=== PATIENT | male | born 1950 | race Caucasian/White ===

== ENCOUNTER 2017-01-27 05:52 | Observation (INO) ==
--- OUTSIDE RECORDS SUMMARY | 2017-01-27 06:15 | External Medical Summary | Referral Summary ---
:1950 Author Organization [facility] Address [address] [place] [address] Care Team Providers Name Role Phone Bryson Humphreys Primary Care Physician Encounter [facility] Date(s): 11/02/15 - 11/02/[address] [facility] [address] [place] [address]- [place] Discharge Disposition: 01-Home or Self Care Attending Physician: Deep Moreland MD Admitting Physician: Deep Moreland MD Vital Signs Most recent to oldest [Reference Range]: 1 Temperature Oral [35.8-37.3 degC] 36.9 degC (11/02/15 1:26 PM) Peripheral Pulse Rate [60-100 bpm] 90 bpm (11/02/15 1:26 PM) Respiratory Rate [14-20 br/min] 18 br/min (11/02/15 1:26 PM) Blood Pressure [90-140/60-90 mmHg] 138/68 mmHg (11/02/15 1:26 PM) SpO2 96 % (11/02/15 1:26 PM) Problem List Condition Effective Dates Status Health Status Informant Acute UTI(Confirmed) Active Benign essential Active hypertension(Confirmed) CTS (carpal tunnel Active syndrome)(Confirmed) Hypoxia, sleep related(Confirmed) Active Bronchitis, chronic(Confirmed) Active CAD (coronary artery Active disease)(Confirmed) Hx of CABG(Confirmed) Active Hyperlipidemia(Confirmed) Active COPD, mild(Confirmed) Active Snoring(Confirmed) Active Allergies, Adverse Reactions, Alerts Substance Reaction Severity Status penicillin Active sulfanilamide topical Active Medications acetaminophen 500 mg, Oral, q6hr, Tylenol Extra Strength 500 mg tablet take 2 tablet (1000MG ) by oral route every6 hours as needed. Start Date: 01/13/15 Status: Orderedalbuterol 2.5 mg/3 mL (0.083%) inhalation solution 2.5 mg 3 mL, Inhalation, q6hr (scheduled), as needed for wheezing, # 360 mL, 6 Refill(s), Pharmacy: [id number], 3 mL Inhalation q6hr (scheduled ),PRN:as needed for wheezing Start Date: 09/20/15 Status: OrderedAnoro Ellipta 62.5 mcg-25 mcg/inh inhalation powder 1 puffs, Inhalation, Daily, # 30 Each, 0 Refill(s), samples given to patient (Rx ) Start Date: 08/25/15 Status: Orderedaspirin 81 mg oral tablet, chewable 81 mg 1 tabs, Oral, Daily, chew 1 tablet (81MG) by oral route every day. Start Date: 01/13/15 Status: OrderedCentrum Silver Oral, Daily, Centrum Silver 0.4 mg-300 mcg-250 mcg tablet 1 tab qd. Start Date: 01/13/15 Status: OrderedCo Q-10 400 mg, Oral, Daily, 0 Refill(s) Start Date: 08/25/15 Status: OrderedFish Oil Oral, 0 Refill(s) Start Date: 05/30/14 Status: Orderedfurosemide 80 mg oral tablet 1 tabs, Oral, Daily, # 30 tabs, 0 Refill(s) Start Date: 05/30/14 Status: OrderedIncruse Ellipta 62.5 mcg/inh inhalation powder 1 Each, Inhalation, q24hr, doses should be taken at least 24 hours apart, # 30 Each, 0 Refill(s), Pharmacy: [facility] [id number], 1 Each Inhalation q24hr ,Instr:doses should be taken at least 24 hours apart Start Date: 10/11/15 Status: Orderedlabetalol 200 mg oral tablet 1 tabs, Oral, BID, # 60 tabs, 0 Refill(s) Start Date: 05/30/14 Status: Orderedlisinopril 20 mg oral tablet 20 mg 1 tabs, Oral, Daily, take 1 tablet (20MG) by oral route every day. Start Date: 01/13/15 Status: Orderedminoxidil 10 mg oral tablet 1 tabs, Oral, BID, # 60 tabs, 0 Refill(s) Start Date: 05/30/14 Status: OrderedMucinex mg, Oral, q12hr, 0 Refill(s) Start Date: 05/30/14 Status: OrderedMylanta Ultimate Strength 500 mg-500 mg/5 mL oral suspension Oral, Daily, 2 tbsp qd. Start Date: 01/13/15 Status: OrderedPravachol 40 mg oral tablet mg tabs, Oral, Bedtime (once a day), 0 Refill(s) Start Date: 08/25/15 Status: Orderedspironolactone 25 mg oral tablet 1 tabs, Oral, BID, # 60 tabs, 0 Refill(s) Start Date: 05/30/14 Status: Ordered Results No data available for this section Immunizations No data available for this section Procedures Procedure Date Related Diagnosis Body Site Coronary artery bypass grafting procedure 1999 Coronary artery stenting Tonsillectomy and adenoidectomy Social History Social History Type Response Smoking Status Never smoker Assessment and Plan No data available for this section
--- OUTSIDE RECORDS SUMMARY | 2017-01-27 06:15 | External Medical Summary | Referral Summary ---
:1950 Author Organization [facility] [place] Address [address] [place] [address] Care Team Providers Name Role Phone Bryson Humphreys Primary Care Physician Encounter [facility] Date(s): 10/28/15 - 10/28/15 [facility] [place] [address] [place] [address]- [phone] Discharge Disposition: 01-Home or Self Care Attending Physician: Ritesh Wall MD Referring Physician: Deep Moreland MD Vital Signs Most recent to oldest [Reference Range]: 1 Peripheral Pulse Rate [60-100 bpm] 84 bpm (10/28/15 3:06 PM) Blood Pressure [90-140/60-90 mmHg] 144/74 mmHg *HI* (10/28/15 3:06 PM) SpO2 95 % (10/28/15 3:06 PM) Problem List Condition Effective Dates Status Health Status Informant Acute UTI(Confirmed) Active Benign essential Active hypertension(Confirmed) CTS (carpal tunnel Active syndrome)(Confirmed) Bronchitis, chronic(Confirmed) Active CAD (coronary artery Active [...] wheezing, # 360 mL, 6 Refill(s), Pharmacy: [id number], 3 mL Inhalation q6hr (scheduled ),PRN:as needed [...] apart, # 30 Each, 0 Refill(s), Pharmacy: [facility] [id number], 1 Each Inhalation q24hr ,Instr:doses should be [...] bypass grafting procedure 1999 Coronary artery stenting Social History Social History Type Response Smoking Status Never smoker Assessment and Plan No data available for this section
--- OUTSIDE RECORDS SUMMARY | 2017-01-27 06:16 | External Medical Summary | Referral Summary ---
:1950 Author Organization [facility] [place] Address [address] [place] [address] Care Team Providers Name Role Phone Bryson Humphreys Primary Care Physician Encounter [facility] [id number] Date(s): 01/11/16 - 01/11/16 [facility] [place] [address] [place] [address]- [phone] Discharge Disposition: 01-Home or Self Care Attending Physician: Ritesh Wall MD Admitting Physician: Ritesh Wall MD Vital Signs No data available for this section Problem List Condition Effective Dates Status Health [...] wheezing, # 360 mL, 6 Refill(s), Pharmacy: [facility], 3 mL Inhalation q6hr (scheduled ),PRN:as needed [...] apart, # 30 Each, 0 Refill(s), Pharmacy: [facility] [address]248, 1 Each Inhalation q24hr ,Instr:doses should be [...]
--- OUTSIDE RECORDS SUMMARY | 2017-01-27 06:16 | External Medical Summary | Referral Summary ---
:1950 Author Organization [facility] Address [address] [place] [address] Care Team Providers Name Role Phone Bryson Humphreys Primary Care Physician Encounter [facility] [id number] Date(s): 08/25/15 - 08/25/15 [facility] [address] [place] [address]- [place] Discharge Diagnosis: Shortness of breath Discharge Disposition: 01-Home or Self Care Attending Physician: Deep Moreland MD Admitting Physician: Deep Moreland MD Vital Signs No data available for [...] Orderedalbuterol 2.5 mg/3 mL (0.083%) inhalation solution 6 mL, Inhalation, q6hr (scheduled), as needed for wheezing, # 300 mL, 0 Refill(s ), Pharmacy: [facility] [id number], 6 mL Inhalation q6hr (scheduled),x30 days,PRN:as needed for wheezing Start Date: 05/30/14 Stop Date: 06/29/14 Status: OrderedAnoro Ellipta 62.5 mcg-25 mcg/inh inhalation [...] tabs, 0 Refill(s) Start Date: 05/30/14 Status: Orderedlabetalol 200 mg oral tablet 1 [...]
--- OUTSIDE RECORDS SUMMARY | 2017-01-27 06:16 | External Medical Summary | Continuity of Care Document ---
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 11/01/2015 Xavi Garrett, Final I10 Essential (primary) Ritesh A hypertension 11/01/2015 Xavi Garrett, Final R06.83 Snoring Ritesh A 11/10/2015 Oyieng''o, Final E66.01 Morbid (severe) Deep O obesity due to excess calories 11/10/2015 Oyieng''o, Final G47.34 Idiopathic sleep Deep O related nonobstructive alveolar hypoventilation 11/10/2015 Oyieng''o, Final R06.02 Shortness of breath Deep O 01/11/2016 Xavicarola Maloneyes, Final G47.33 Obstructive sleep Ritesh A apnea (adult) (pediatric) 01/11/2016 Xavicarola Maloneyes, 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 01/11/2016 Xavi Garrett, 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 01/23/2016 Xavi Garrett, Final G47.33 Obstructive sleep Ritesh A apnea (adult) (pediatric) 01/23/2016 Xavi Garrett, 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 07/10/2016 Oyieng''o, Final E66.01 Morbid (severe) Deep O obesity due to excess calories 07/10/2016 Oyieng''o, Final G47.34 Idiopathic sleep Deep O related nonobstructive alveolar hypoventilation 07/10/2016 Oyieng''o, Final R06.02 Shortness of breath Deep O 07/10/2016 Oyieng''o, Final R53.81 Other malaise Deep O Procedures Code Description Performed By Performed On 11/02/2015 06826 Office or other outpatient visit for the evaluation and management of an established patient, which requires at least 2 of these 3 marie components: An expanded problem focused history; An expanded prob 01/11/2016 69525 Polysomnography; age 6 years or older, sleep staging with 4 or more additional parameters of sleep, attended by a technologist 01/21/2016 76551 Office or other outpatient visit for the evaluation and management of an established patient, which requires at least 2 of these 3 marie components: An expanded problem focused history; An expanded prob 07/10/2016 95488 Office or other outpatient visit for the evaluation and management of an established patient, which requires at least 2 of these 3 marie components: An expanded problem focused history; An expanded prob Results Encounters ACCT No. Visit Discharge Status Pt. Type Provider Facility Loc./Unit Complaint Date/Time [id number] 05/31/2015 05/31/2015 [facility] Outpatient [id number] 09:31:39 09:31:39 39 [id number] 05/31/2015 05/31/2015 [facility] Outpatient [id number] 09:31:31 09:31:33 31 [id number] 04/02/2015 04/02/2015 [facility] Outpatient [id number] 13:20:42 23:59:59 42 [id number] 04/02/2015 04/02/2015 [facility] Outpatient [id number] 10:53:41 23:59:59 41 [id number] 04/02/2015 04/02/2015 [facility] Outpatient [id number] 09:51:56 23:59:59 56 [id number] 04/02/2015 04/02/2015 [facility] Outpatient [id number] 09:51:53 23:59:59 53 [id number] 04/02/2015 04/02/2015 [facility] Outpatient [id number] 09:51:52 23:59:59 52 [id number] 04/02/2015 04/02/2015 [facility] Outpatient [id number] 09:49:44 23:59:59 44 [id number] 04/02/2015 04/02/2015 [facility] Out[facility] [id number] 09:49:42 23:59:59 42 [id number] 04/02/2015 04/02/2015 [facility] Outpatient [id number] 11:14:12 11:14:12 12 [id number] 04/02/2015 04/02/2015 [facility] Outpatient [id number] 10:53:24 10:53:25 24 [id number] 04/02/2015 04/02/2015 [facility] Outpatient [id number] 09:56:12 09:56:12 12 [id number] 04/02/2015 04/02/2015 [facility] Outpatient [id number] 09:51:57 09:51:57 57 [id number] 04/02/2015 04/02/2015 [facility] Outpatient [id number] 09:51:55 09:51:55 55 [id number] 04/02/2015 04/02/2015 [facility] Outpatient [id number] 09:51:54 09:51:54 54 [id number] 04/02/2015 04/02/2015 [facility] Outpatient [id number] 09:51:51 09:51:51 51 [id number] 04/02/2015 04/02/2015 [facility] Outpatient [id number] 09:50:37 09:50:37 37 [id number] 03/31/2015 03/31/2015 [facility] Outpatient [id number] 08:49:10 23:59:59 10 [id number] 03/31/2015 03/31/2015 [facility] Outpatient [id number] 08:49:09 08:49:09 09 [id number] 03/30/2015 03/30/2015 [facility] Outpatient [id number] 15:00:39 23:59:59 39 [id number] 03/30/2015 03/30/2015 [facility] Outpatient [id number] 15:00:13 23:59:59 13 [id number] 03/30/2015 03/30/2015 [facility] Outpatient [id number] 15:00:26 15:00:30 26 [id number] 03/30/2015 03/30/2015 [facility] Outpatient [id number] 15:00:01 15:00:04 01 [id number] 03/30/2015 03/30/2015 [facility] Outpatient [id number] 10:18:45 10:18:47 45 [id number] 03/30/2015 03/30/2015 [facility] Outpatient [id number] 10:17:15 10:17:17 15 [id number] 03/30/2015 03/30/2015 [facility] Outpatient [id number] 10:16:37 10:16:38 37 [id number] 04/02/2015 Document [id number] 09:56:00 Registrati on [id number] 01/08/2017 01/08/2017 [facility] Outpatient Oyieng''o [facility] 6 MO RCK 21 13:38:00 23:59:00 , [facility] [id number] 07/10/2016 07/10/2016 [facility] Outpatient Oyieng''o [facility] 6 MO RCK 11 09:33:00 23:59:00 , Deep Jo [facility] [id number] 01/21/2016 01/21/2016 [facility] Outpatient Xavi [facility] 09:02:00 23:59:00 Nelli Garrett CP december 12 Ritesh A [facility] [id number] 01/11/2016 01/11/2016 [facility] Outpatient Xavi [facility] split 75 21:42:00 23:59:00 Nelli Garrett CP [facility] [id number] 11/02/2015 11/02/2015 [facility] Outpatient Oyieng''o [facility] 2 MO 87 13:11:00 23:59:00 , Deep Jo RCK/SOA O Clinic [id number] 10/28/2015 10/28/2015 [facility] Outpatient Xavi [facility] CRYSTAL 14:56:00 23:59:00 Nelli Garrett CP [facility] SHORTNESS OF AIR ABN OXI POSSIBLE LEE [id number] 09/07/2015 09/07/2015 [facility] Outpatient Oyieng''o [facility] DR CRYSTAL 89 13:38:00 23:59:00 , Deep Aiken CP REF O Clinic R06.02 RA [id number] 08/25/2015 08/25/2015 [facility] Outpatient Oyieng''o [facility] PFT/OYIENG 00 13:23:00 23:59:00 , Deep Jo O/J44.9/R0 O Clinic 6.02 [id number] 08/25/2015 08/25/2015 [facility] Outpatient Oyieng''o [facility] NPT/LUINST 05 13:21:00 23:59:00 , Deep Jo RA/SOA/YARD HOSTLER O Clinic D NPV [id number] 08/06/2015 08/06/2015 [facility] Outpatient Luinstra, [facility] NPV 90 08:55:00 23:59:00 Bryson [facility] [id number] 05/24/2015 05/24/2015 [facility] Outpatient Luinstra, [facility] cough 31 11:23:00 23:59:00 Bryson Aiken possible Clinic UTI [id number] 05/30/2014 05/30/2014 [facility] Outpatient Prakash, [facility] breathing 25 09:49:00 23:59:00 Jonn Aiken issues Clinic
--- OUTSIDE RECORDS SUMMARY | 2017-01-27 06:16 | External Medical Summary | Referral Summary ---
:1950 Author Organization [facility] Address [address] [place] [address] Care Team Providers Name Role Phone Bryson Humphreys Primary Care Physician Encounter [facility] [id number] Date(s): 07/10/16 - 07/10/16 [facility] [address] [place] [address]- [place] Discharge Diagnosis: Shortness of breath Discharge Diagnosis: Morbid obesity Discharge Diagnosis: Physical deconditioning Discharge Diagnosis: Nocturnal hypoxemia Discharge Disposition: 01-Home or Self Care Attending Physician: Deep Delong MD Admitting Physician: Deep Delong MD Vital Signs Most recent to oldest [Reference Range]: 1 Peripheral Pulse Rate [60-100 bpm] 90 bpm (07/10/16 9:46 AM) Respiratory Rate [14-20 br/min] 18 br/min (07/10/16 9:46 AM) Blood Pressure [90-140/60-90 mmHg] 110/58 mmHg (07/10/16 9:46 AM) SpO2 95 % (07/10/16 9:46 AM) Problem List Condition Effective Dates Status Health Status Informant Acute UTI(Confirmed) Active Benign essential Active hypertension(Confirmed) CTS (carpal tunnel Active syndrome)(Confirmed) Hypoxia, sleep related(Confirmed) Active Bronchitis, chronic(Confirmed) Active CAD (coronary artery Active disease)(Confirmed) Hx of CABG(Confirmed) Active Hyperlipidemia(Confirmed) Active COPD, mild(Confirmed) Active Morbid obesity(Confirmed) Active patient LEE on CPAP(Confirmed) Active Snoring(Confirmed) Active Allergies, Adverse Reactions, Alerts [...] wheezing, # 360 mL, 6 Refill(s), Pharmacy: [facility], 3 mL Inhalation q6hr (scheduled ),PRN:as needed for wheezing Start Date: 09/20/15 Status: Orderedaspirin 81 mg oral tablet, chewable 81 mg 1 tabs, Oral, Daily, chew 1 tablet (81MG) by oral route every day. Start Date: 01/13/15 Status: Orderedatorvastatin 40 mg oral tablet 40 mg 1 tabs, Oral, Daily, 0 Refill(s) Start Date: 07/10/16 Status: OrderedCentrum Silver Oral, Daily, Centrum Silver 0.4 mg-300 mcg-250 mcg tablet 1 tab qd. Start Date: 01/13/15 Status: OrderedCo Q-10 400 mg, Oral, Daily, 0 Refill(s) Start Date: 08/25/15 Status: OrderedFish Oil Oral, 0 Refill(s) Start Date: 05/30/14 Status: Orderedfurosemide 80 mg oral tablet 1 tabs, Oral, Daily, # 30 tabs, 0 Refill(s) Start Date: 05/30/14 Status: OrderedHome Oxygen (DME) DME Item 2 LPM at bedtime ([facility]), See Instructions, # 1 Each, 0 Refill(s), Supply Start Date: 07/10/16 Status: Orderedlabetalol 200 mg oral tablet 1 [...] 500 mg-500 mg/5 mL oral suspension Oral, As Indicated, 2 tbsp qd. Start Date: 01/13/15 Status: Orderedspironolactone 25 mg oral tablet 1 tabs, Oral, BID, # 60 tabs, 0 Refill(s) Start Date: 05/30/14 Status: Ordered Results No data available for this section Immunizations Given and Recorded Vaccine Date Status Refusal Reason influenza virus vaccine, inactivated 05/04/16 Recorded Procedures Procedure Date Related Diagnosis Body Site Coronary artery bypass grafting procedure 1999 Coronary artery stenting Tonsillectomy and adenoidectomy Social History Social History Type Response Smoking Status Never smoker Assessment and Plan Extracted from: Title: Office Visit Note Author: Deep Delong MD Date: 07/10/16 Assessment/Plan 1. Shortness of breath His shortness of breath is multifactorial, he has cad and HTN and likely has diastolic dysfunction, he is obese and likely deconditioned. Encouraged weight loss and activity. He is working on calorie count and exercise. continue anoro 2. Morbid obesity Encouraged weight loss 3. Deconditioning Encouraged physical activity 4. Nocturnal hypoxemia continue oxygen, undergoing sleep evaluation, pending cpap titration, discussed the benefits of cpap and the indication and differentce between cpap and bipap. I have reviewed the patientsradiology and imaging results I have reviewed old records I have reviewed the literature I have discussed the plan of care with the patient
--- OUTSIDE RECORDS SUMMARY | 2017-01-27 06:16 | External Medical Summary | Referral Summary ---
:1950 Author Organization [facility] Address [address] [place] [address] Care Team Providers Name Role Phone Bryson Humphreys Primary Care Physician Encounter [facility] [id number] Date(s): 08/25/15 - 08/25/15 [facility] [address] [place] [address]- [place] Discharge Diagnosis: Shortness of breath Discharge Disposition: 01-Home or Self Care Attending Physician: Deep Moreland MD Admitting Physician: Deep Moreland MD Vital Signs Most recent to oldest [Reference Range]: 1 Peripheral Pulse Rate [60-100 bpm] 92 bpm (08/25/15 2:35 PM) Respiratory Rate [14-20 br/min] 16 br/min (08/25/15 2:35 PM) Blood Pressure [90-140/60-90 mmHg] 132/74 mmHg (08/25/15 2:35 PM) SpO2 96 % (08/25/15 2:35 PM) Problem List Condition Effective Dates Status [...] # 300 mL, 0 Refill(s ), Pharmacy: [facility] [id number], 6 mL Inhalation q6hr (scheduled),x30 days,PRN:as needed [...] Body Site Coronary artery bypass grafting procedure 2000 Coronary artery stenting Social History Social History Type Response Smoking Status Never smoker Assessment and Plan No data available for this section
--- OUTSIDE RECORDS SUMMARY | 2017-01-27 06:16 | External Medical Summary | Referral Summary ---
:1950 Author Organization [facility] Address [address] [place] [address] M[place] Valentin [address] Care Team Providers Name Role Phone No PCP, States Primary Care Physician Encounter VC Date(s): 05/24/15 - 05/24/15 [facility] [address] [place] [address] [place] Discharge Disposition: 01-Home or Self Care Attending Physician: Bryson Humphreys MD Admitting Physician: Bryson Humphreys MD Vital Signs Most recent to oldest [Reference Range]: 1 Blood Pressure [90-140/60-90 mmHg] 140/70 mmHg (05/24/15 11:34 AM) Problem List Condition Effective Dates Status [...] # 300 mL, 0 Refill(s ), Pharmacy: [id number], 6 mL Inhalation q6hr (scheduled),x30 days,PRN:as needed for wheezing Start Date: 05/30/14 Stop Date: 06/29/14 Status: Orderedaspirin 0 Refill(s) Start Date: 05/30/14 Status: Orderedaspirin 81 mg oral tablet, chewable 81 mg 1 tabs, Oral, Daily, chew 1 tablet (81MG) by oral route every day. Start Date: 01/13/15 Status: OrderedCentrum Daily, 0 Refill(s) Start Date: 05/30/14 Status: OrderedCentrum Silver Oral, Daily, Centrum Silver 0.4 mg-300 mcg-250 mcg tablet 1 tab qd. Start Date: 01/13/15 Status: OrderedCipro 500 mg oral tablet 500 mg 1 tabs, Oral, q12hr, X 10 days, # 20 tabs, 0 Refill(s), Pharmacy: [id number],1 tabs Oral q12hr,x10 days Start Date: 05/24/15 Stop Date: 06/03/15 Status: OrderedFish Oil Oral, 0 Refill(s) Start [...] route every day. Start Date: 01/13/15 Status: Orderedlisinopril-hydrochlorothiazide 20 mg-25 mg oral tablet 1 tabs, Oral, Daily, # 30 tabs, 0 Refill(s) Start Date: 05/30/14 Status: Orderedminoxidil 10 mg oral tablet 1 tabs, Oral, BID, # 60 tabs, 0 Refill(s) Start Date: 05/30/14 Status: OrderedMucinex mg, Oral, q12hr, 0 Refill(s) Start Date: 05/30/14 Status: OrderedMylanta Ultimate Strength 500 mg-500 mg/5 mL oral suspension Oral, Daily, 2 tbsp qd. Start Date: 01/13/15 Status: OrderedNorco 7.5 mg-325 mg oral tablet 1 tabs, Oral, q4hr, take 1 tablet by oral route 3very 4 hours as needed for pain., 0 Refill(s) Start Date: 01/13/15 Status: Orderedpravastatin 40 mg oral tablet 1 tabs, Oral, Daily, # 30 tabs, 0 Refill(s) Start Date: 05/30/14 Status: OrderedpredniSONE 20 mg oral tablet 20 mg 1 tabs, Oral, Daily, X 5 days, # 5 tabs, 0 Refill(s), Pharmacy: [facility] [id number], 1 tabs Oral Daily,x5 days Start Date: 05/24/15 Stop Date: 05/29/15 Status: Orderedspironolactone 25 mg oral tablet 1 tabs, Oral, BID, # 60 tabs, 0 Refill(s) Start Date: 05/30/14 Status: OrderedVentolin HFA 90 mcg/inh inhalation aerosol 2 puffs, Inhalation, q4hr, as needed for wheezing, # 8 g, 1 Refill(s), Pharmacy : [facility] [id number], 2 puffs Inhalation q4hr,PRN:as needed for wheezing Start Date: 05/30/14 Status: Ordered Results Urinalysis Most recent to oldest [Reference Range]: 1 UA Color Yellow (05/24/15 12:00 PM) UA Appear Clear (05/24/15 12:00 PM) UA pH [5.0-8.0] 5.0 (05/24/15 12:00 PM) UA Leuk Est [Negative] Negative (05/24/15 12:00 PM) UA Nitrite [Negative] Negative (05/24/15 12:00 PM) UA Protein [Negative] Negative (05/24/15 12:00 PM) UA Glucose [Negative] Negative (05/24/15 12:00 PM) UA Ketones [Negative] Negative (05/24/15 12:00 PM) UA Urobilinogen [<=1.0 mg/dL] 0.2 mg/dL (05/24/15 12:00 PM) UA Bili [Negative] Negative (05/24/15 12:00 PM) UA Blood [Negative] Trace *ABN* (05/24/15 12:00 PM) UA Spec Grav [1.003-1.030] 1.010 (05/24/15 12:00 PM) Type Voided (05/24/15 12:00 PM) Immunizations No data available for this section Procedures Procedure Date Related Diagnosis Body Site Coronary artery bypass grafting procedure 2000 Coronary artery stenting Social History Social History Type Response Smoking Status Never smoker Assessment and Plan Extracted from: Title: Ambulatory Patient Education Author: Bryson Humphreys MD Date: 05/24 Family Medicine Asthma Asthma is a recurring condition in which the airways tighten and narrow. Asthma can make it difficult to breathe. It can cause coughing, wheezing, and shortness of breath. Asthma episodes, also called a sthma attacks, range from minor to life-threatening. Asthma cannot be cured, but medicines and lifestyle changes can help control it. CAUSES Asthma is believed to be caused by inherited (genetic) and environmental factors, but its exact cause is unknown. Asthma may be triggered by allergens, lung infections, or irritants in the air. Asthma t riggers are different for each person. Common triggers include: Animal dander. Dust mites. Cockroaches. Pollen from trees or grass. Mold. Smoke. Air pollutants such as dust, household cash accountant, hair sprays, aerosol sprays, paint fumes, strong chemicals, or strong odors. Cold air, weather changes, and winds (which increase molds and pollens in the air). Strong emotional expressions such as crying or laughing hard. Stress. Certain medicines (such as aspirin) or types of drugs (such as beta- blockers). Sulfites in foods and drinks. Foods and drinks that may contain sulfites include dried fruit, potato chips, and sparkling grape juice. Infections or inflammatory conditions such as the flu, a cold, or an inflammation of the nasal membranes (rhinitis). Gastroesophageal reflux disease (GERD). Exercise or strenuous activity. SYMPTOMS Symptoms may occur immediately after asthma is triggered or many hours later. Symptoms include: Wheezing. Excessive nighttime or cell attendant coughing. Frequent or severe coughing with a common cold. Chest tightness. Shortness of breath. DIAGNOSIS The diagnosis of asthma is made by a review of your medical history and a physical exam. Tests may also be performed. These may include: Lung function studies. These tests show how much air you breathe in and out. Allergy tests. Imaging tests such as X-rays. TREATMENT Asthma cannot be cured, but it can usually be controlled. Treatment involves identifying and avoiding your asthma triggers. It also involves medicines. There are 2 classes of medicine used for asthma treatment: Controller medicines. These prevent asthma symptoms from occurring. They are usually taken every day. Reliever or rescue medicines. These quickly relieve asthma symptoms. They are used as needed and provide short-term relief. Your health care provider will help you create an asthma action plan. An asthma action plan is a written plan for managing and treating your asthma attacks. It includes a list of your asthma triggers an d how they may be avoided. It also includes information on when medicines should be taken and when their dosage should be changed. An action plan may also involve the use of a device called a peak flow meter. A peak flow meter measures how well the lungs are working. It helps you monitor your condition. HOME CARE INSTRUCTIONS Take medicines only as directed by your health care provider. Speak with your health care provider if you have questions about how or when to take the medicines. Use a peak flow meter as directed by your health care provider. Record and keep track of readings. Understand and use the action plan to help minimize or stop an asthma attack without needing to seek medical care. Control your home environment in the following ways to help prevent asthma attacks: Do not smoke. Avoid being exposed to secondhand smoke. Change your heating and air conditioning filter regularly. Limit your use of fireplaces and wood stoves. Get rid of pests (such as roaches and mice) and their droppings. Throw away plants if you see mold on them. Clean your floors and dust regularly. Use unscented cleaning products. Try to have someone else vacuum for you regularly. Stay out of rooms while they are being vacuumed and for a short while afterward. If you vacuum, use a dust mask from a hardware store, a double-la yered or microfilter vacuum cesspool cleaner bag, or a vacuum cesspool cleaner with a HEPA filter. Replace carpet with wood, tile, or vinyl john. Carpet can trap dander and dust. Use allergy-proof pillows, mattress covers, and box spring covers. Wash bed sheets and blankets every week in hot water and dry them in a dryer. Use blankets that are made of polyester or cotton. Clean bathrooms and jorge luis with bleach. If possible, have someone repaint the griffin in these rooms with mold-resistant paint. Keep out of the rooms that are being cleaned and painted. Wash hands frequently. SEEK MEDICAL CARE IF: You have wheezing, shortness of breath, or a cough even if taking medicine to prevent attacks. The colored mucus you cough up (sputum) is thicker than usual. Your sputum changes from clear or white to yellow, green, guzman, or bloody. You have any problems that may be related to the medicines you are taking (such as a rash, itching, swelling, or trouble breathing). You are using a reliever medicine more than 23 times per week. Your peak flow is still at 5079% of your personal best after following your action plan for 1 hour. You have a fever. SEEK IMMEDIATE MEDICAL CARE IF: You seem to be getting worse and are unresponsive to treatment during an asthma attack. You are short of breath even at rest. You get short of breath when doing very little physical activity. You have difficulty eating, drinking, or talking due to asthma symptoms. You develop chest pain. You develop a fast heartbeat. You have a bluish color to your lips or fingernails. You are light-headed, dizzy, or faint. Your peak flow is less than 50% of your personal best. MAKE SURE YOU: Understand these instructions. Will watch your condition. Will get help right away if you are not doing well or get worse. Document Released: 05/21/2006 Document Revised: 10/05/2014 Document Reviewed: 12/18/2013 ExitCare Patient Information 2015 [facility]. This information is not intended to replace advice given to you by your health care provider. Make sure you discuss any questions you have with your health care provider. No follow up information was provided. Extracted from: Title: Office Visit Note Author: Bryson Humphreys MD Date: 05/24/15 Assessment/Plan Acute UTI UA pending. Cipro 500mg po bid for ten days. The patient has family members present who are agreeable with today's plan and have no additional concerns or requests. here. Ordered: Urinalysis with Culture if Indicated Adult-onset obesity Diet and exercise as tolerated and feasible. Consider medication when interested. Benign essential hypertension This issue was reviewed, appears stable, and current therapy continued except as mentioned. Appropriate lab was reviewed from the most recent appropriate entry and lab was ordered if needed in the cpoe/nursing orders, and follow up recommended generally in 90 days and no later then six months. Sees Dr[address] Chacon. Bronchitis, chronic Prednisone 20mg po daily for five days, has nebulizer and refills. CXR and work up/med adjustment when interested. Needs PCP. CAD (coronary artery disease) This issue was reviewed, appears stable, and current therapy continued except as mentioned. Appropriate lab was reviewed from the most recent appropriate entry and lab was ordered if needed in the cpoe/nursing orders, and follow up recommended generally in 90 days and no later then six months. Sees Dr[address] Chacon. COPD, mild See above. CTS (carpal tunnel syndrome) This issue was reviewed, appears stable, and current therapy continued except as mentioned. Appropriate lab was reviewed from the most recent appropriate entry and lab w as ordered if needed in the cpoe/nursing orders, and follow up recommended generally in 90 days and no later then six months. Sees Dr[address] Harper and had recent surgery on right hand. Hx of CABG This issue was reviewed, appears stable, and current therapy continued except as mentioned. Appropriate lab was reviewed from the most recent appropriate entry and lab was ordered if need ed in the cpoe/nursing orders, and follow up recommended generally in 90 days and no later then six months. Sees [address] Chacon. Hyperlipidemia This issue was reviewed, appears stable, and current therapy continued except as mentioned. Appropriate lab was reviewed from the most recent appropriate entry and lab was ordered if needed in the cpoe/nursing orders, and follow up recommended generally in 90 days and no later then six months. Sees Dr[address] Chacon. Snoring We discussed several options for treatment for this condition. The patient declined any changes or other treatments at this time. To Sleep Medicine for presumed sleep apnea when interested. Orders: ciprofloxacin, 500 mg 1 tabs, Oral, q12hr, X 10 days, # 20 tabs, 0 Refill(s), Pharmacy: [facility] [id number], 1 tabs Oral q12hr,x10 days predniSONE, 20 mg 1 tabs, Oral, Daily, X 5 days, # 5 tabs, 0 Refill(s), Pharmacy: [facility] [id number], 1 tabs Oral Daily,x5 days
--- OUTSIDE RECORDS SUMMARY | 2017-01-27 06:16 | External Medical Summary | Referral Summary ---
:1950 Author Organization [facility] Address [address] [place] [address] [place] [address] Care Team Providers Name Role Phone Bryson Humphreys Primary Care Physician Encounter VC Date(s): 08/06/15 - 08/06/15 [facility] [place] [address] [place] Discharge Disposition: 01-Home or Self Care Attending Physician: Bryson Humphreys MD Admitting Physician: Bryson Humphreys MD Vital Signs Most recent to oldest [Reference Range]: 1 Blood Pressure [90-140/60-90 mmHg] 130/60 mmHg (08/06/15 9:02 AM) Problem List Condition Effective Dates Status [...] # 300 mL, 0 Refill(s ), Pharmacy: [facility] [id number], 6 mL Inhalation q6hr (scheduled),x30 days,PRN:as needed [...] 1 tab qd. Start Date: 01/13/15 Status: OrderedFish Oil Oral, 0 Refill(s) Start Date: 05/30/14 Status: Orderedfurosemide 80 mg oral tablet 1 tabs, Oral, Daily, # 30 tabs, 0 Refill(s) Start Date: 05/30/14 Status: Orderedlabetalol 200 mg oral tablet 1 tabs, Oral, BID, # 60 tabs, 0 Refill(s) Start Date: 05/30/14 Status: Orderedlisinopril 20 mg oral tablet 20 mg 1 tabs, Oral, Daily, # 90 tabs, 0 Refill(s) Start Date: 08/06/15 Status: Orderedlisinopril 20 mg oral tablet 20 [...] 2 tbsp qd. Start Date: 01/13/15 Status: Orderedpravastatin 40 mg oral tablet 1 tabs, Oral, Daily, # 30 tabs, 0 Refill(s) Start Date: 05/30/14 Status: Orderedspironolactone 25 mg oral tablet 1 tabs, Oral, BID, # 60 tabs, 0 Refill(s) Start Date: 05/30/14 Status: Ordered Results Hematology Most recent to oldest [Reference Range]: 1 WBC [4.8-10.8 10*3/uL] 10.4 10*3/uL (08/06/15 9:45 AM) RBC [4.60-6.20] 4.95 (08/06/15 9:45 AM) Hgb [14.0-18.0 gm/dL] 13.6 gm/dL *LOW* (08/06/15 9:45 AM) Hct [42.0-52.0 %] 38.6 % *LOW* (08/06/15 9:45 AM) MCV [82.0-99.0 fL] 78.0 fL *LOW* (08/06/15 9:45 AM) MCH [27.0-32.0 pg] 27.5 pg (08/06/15 9:45 AM) MCHC [32.0-36.0 gm/dL] 35.2 gm/dL (08/06/15 9:45 AM) RDW [11.5-14.5 %] 14.0 % (08/06/15 9:45 AM) Platelet [150-400 10*3/uL] 256 10*3/uL (08/06/15 9:45 AM) MPV [8.8-14.8 fL] 8.8 fL (08/06/15 9:45 AM) Immature Granulocytes [0.0-1.0 %] 0.2 % (08/06/15 9:45 AM) Neutrophils [51-75 %] 78 % *HI* (08/06/15 9:45 AM) Lymphocytes [20-46 %] 13 % *LOW* (08/06/15 9:45 AM) Monocytes [4-11 %] 7 % (08/06/15 9:45 AM) Eosinophils [0-4 %] 1 % (08/06/15 9:45 AM) Basophils [0-2 %] 0 % (08/06/15 9:45 AM) Neutro Absolute [1.90-7.00 10*3] 8.12 10*3 *HI* (08/06/15 9:45 AM) Lymph Absolute [0.80-3.30 10*3] 1.40 10*3 (08/06/15 9:45 AM) Pope Absolute [0.30-1.00 10*3] 0.76 10*3 (08/06/15 9:45 AM) Eos Absolute [0.00-0.50 10*3] 0.12 10*3 (08/06/15 9:45 AM) Baso Absolute [0.00-0.20 10*3] 0.02 10*3 (08/06/15 9:45 AM) Chemistry Most recent to oldest [Reference Range]: 1 Sodium Lvl [135-144 mEq/L] 138 mEq/L (08/06/15 9:45 AM) Potassium Lvl [3.5-5.2 mEq/L] 4.1 mEq/L (08/06/15 9:45 AM) Chloride [99-111 mEq/L] 103 mEq/L (08/06/15 9:45 AM) CO2 [23-31 mEq/L] 25 mEq/L (08/06/15 9:45 AM) AGAP [3-20] 10 (08/06/15 9:45 AM) BUN [8-26 mg/dL] 17 mg/dL (08/06/15 9:45 AM) Glucose Lvl [70-99 mg/dL] 123 mg/dL *HI* (08/06/15 9:45 AM) Creatinine Lvl [0.72-1.25 mg/dL] 0.94 mg/dL (08/06/15 9:45 AM) eGFR [>60 mL/min] >60 mL/min 1 (08/06/15 9:45 AM) Calcium Lvl [8.9-10.5 mg/dL] 9.0 mg/dL (08/06/15 9:45 AM) Albumin Lvl [3.4-4.8 gm/dL] 4.5 gm/dL (08/06/15 9:45 AM) Total Protein [6.2-8.1 gm/dL] 7.0 gm/dL (08/06/15 9:45 AM) Globulin [1.8-4.0 gm/dL] 2.5 gm/dL (08/06/15 9:45 AM) ALT [0-55 U/L] 29 U/L (08/06/15 9:45 AM) AST [5-34 U/L] 20 U/L (08/06/15 9:45 AM) Alk Phos [40-150 U/L] 100 U/L (08/06/15 9:45 AM) Bili Total [0.2-1.2 mg/dL] 0.6 mg/dL (08/06/15 9:45 AM) PSA (wihout Reflex Free) [0.0-4.5 ng/mL] 1.1 ng/mL 2 (08/06/15 9:45 AM) Chol [0-199 mg/dL] 148 mg/dL (08/06/15 9:45 AM) Trig [0-149 mg/dL] 288 mg/dL *HI* (08/06/15 9:45 AM) HDL [40-84 mg/dL] 31 mg/dL *LOW* (08/06/15 9:45 AM) LDL [0-130 mg/dL] 59 mg/dL (08/06/15 9:45 AM) VLDL Cholesterol [0-28 mg/dL] 58 mg/dL *HI* (08/06/15 9:45 AM) Cardiac Risk [0.0-5.7] 4.8 (08/06/15 9:45 AM) TSH with Reflex Free T4 [0.35-4.94] 0.84 (08/06/15 9:45 AM) 1Result Comment: Multiply eGFR results by 1.21 for race.2Result Comment: AUA PSA Best Practice Guidelines: Age-Adjusted PSA Values by Ethnic Group Age Range Asians - Caucasians Americans 40-49 0-2.0 0-2.0 0-2.5 50-59 0-3.0 0-4.0 0-3.5 60-69 0-4.0 0-4.5 0-4.5 70-79 0-5.0 0-5.5 0-6.5Urinalysis Most recent to oldest [Reference Range]: 1 UA Color Yellow (08/06/15 9:45 AM) UA Appear Clear (08/06/15 9:45 AM) UA pH [5.0-8.0] 5.5 (08/06/15 9:45 AM) UA Leuk Est [Negative] Negative (08/06/15 9:45 AM) UA Nitrite [Negative] Negative (08/06/15 9:45 AM) UA Protein [Negative] Negative (08/06/15 9:45 AM) UA Glucose [Negative] Negative (08/06/15 9:45 AM) UA Ketones [Negative] Negative (08/06/15 9:45 AM) UA Urobilinogen [<1.0 mg/dL] 0.2 mg/dL (08/06/15 9:45 AM) UA Bili [Negative] Negative (08/06/15 9:45 AM) UA Blood [Negative] Negative (08/06/15 9:45 AM) UA Spec Grav [1.003-1.030] 1.012 (08/06/15 9:45 AM) Type Voided (08/06/15 9:45 AM) Immunizations No data available for this section Procedures Procedure Date Related Diagnosis Body Site Coronary artery bypass grafting procedure 2000 Coronary artery stenting Social History Social History Type Response Smoking Status Never smoker Assessment and Plan Extracted from: Title: Ambulatory Patient Education Author: Bryson Humphreys MD Date: Family Medicine Asthma Asthma is a recurring [...] Smoke. Air pollutants such as dust, household creative writing teacher, hair sprays, aerosol sprays, paint fumes, strong [...] later. Symptoms include: Wheezing. Excessive nighttime or senior net web developer coughing. Frequent or severe coughing with a [...] dust mask from a hardware store, a double- layered or microfilter vacuum cleaner and trimmer bag, or a vacuum cleaner and trimmer with a HEPA filter. Replace carpet with [...] are not doing well or get worse. This information is not intended to replace advice given to you by your health care provider. Make sure you discuss any questions you have with your health care provider. Document Released: 05/21/2006 Document Revised: 10/05/2014 Document Reviewed: 12/18/2013 ExitCare Patient Information 2015 [employer]. No follow up information was provided. Extracted from: Title: Office Visit Note Author: Bryson Humphreys MD Date: 3/4/16 Assessment/Plan CAD (coronary artery disease) This issue was reviewed, appears stable, and current therapy continued except as mentioned. Appropriate lab was reviewed from the most recent appropriate entry and lab was ordered if needed in the cpoe/nursing orders, and follow up recommended generally in 90 days and no later then six months. Notes from Dr. Chacon from 06/30/15 reviewed with negative stress test. COPD, mild To [facility] Pulmonology for evaluation and consideration of PFTs, and/ or sleep apnea work up also. Continue albuterol. Other inhalers offered and declined. CXR pending. High cholesterol This issue was reviewed, appears stable, and current therapy continued except as mentioned. Appropriate lab was reviewed from the most recent appropriate entry and lab was ordered i f needed in the cpoe/nursing orders, and follow up recommended generally in 90 days and no later then six months. Lab pending. The patient has family members present who are agreeable with today 's plan and have no additional concerns or requests. here. Ordered: Lipid Panel HTN (hypertension) This issue was reviewed, appears stable, and current therapy continued except as mentioned. Appropriate lab was reviewed from the most recent appropriate entry and lab was ordered if needed in the cpoe/nursing orders, and follow up recommended generally in 90 days and no later then six months. The patient had an elevated blood pressure reading and is to monitor their bp and call with a report if consistently > 140/90. Ordered: CBC w/ Differential Comprehensive Metabolic Panel TSH with Reflex Free T4 Urinalysis with Culture if Indicated Screening PSA (prostate specific antigen) Lab pending. Ordered: Prostate Specific Antigen Snoring To Pulmonology. Orders: Internal Referral to Pulmonology
--- OUTSIDE RECORDS SUMMARY | 2017-01-27 06:16 | External Medical Summary | Referral Summary ---
:1950 Author Organization [facility] [place] Address [address] [place] [address] Care Team Providers Name Role Phone Bryson Humphreys Primary Care Physician Encounter [facility] Date(s): 09/07/15 - 09/07/15 [facility] [place] [address] [place] [address]- [phone] Discharge Disposition: 01-Home or Self Care Attending Physician: Deep Moreland MD Admitting Physician: Deep Moreland MD Referring Physician: Deep Moreland MD Vital Signs No [...] # 300 mL, 0 Refill(s ), Pharmacy: [facility] [id number], 6 mL Inhalation q6hr (scheduled),x30 days,PRN:as needed [...]
--- OUTSIDE RECORDS SUMMARY | 2017-01-27 06:16 | External Medical Summary | Referral Summary ---
:1950 Author Organization [facility] [place] Address [address] [place] [address] Care Team Providers Name Role Phone Bryson Humphreys Primary Care Physician Encounter [facility] [id number] Date(s): 01/21/16 - 01/21/16 [facility] [place] [address] [place] [address]- [phone] Discharge Disposition: 01-Home or Self Care Attending Physician: Ritesh Wall MD Admitting Physician: Ritesh Wall MD Vital Signs Most recent to oldest [Reference Range]: 1 Peripheral Pulse Rate [60-100 bpm] 88 bpm (01/21/16 9:12 AM) Blood Pressure [90-140/60-90 mmHg] 136/80 mmHg (01/21/16 9:12 AM) SpO2 96 % (01/21/16 9:12 AM) Problem List Condition Effective Dates Status Health Status Informant Acute UTI(Confirmed) Active Benign essential Active hypertension(Confirmed) CTS (carpal tunnel Active syndrome)(Confirmed) Hypoxia, sleep related(Confirmed) Active Bronchitis, chronic(Confirmed) Active CAD (coronary artery Active disease)(Confirmed) Hx of CABG(Confirmed) Active Hyperlipidemia(Confirmed) Active COPD, mild(Confirmed) Active Morbid obesity(Confirmed) Active patient Snoring(Confirmed) Active Allergies, Adverse Reactions, Alerts Substance [...] wheezing, # 360 mL, 6 Refill(s), Pharmacy: [facility] [id number], 3 mL Inhalation q6hr (scheduled ),PRN:as needed [...] apart, # 30 Each, 0 Refill(s), [facility] [place] [id number], 1 Each Inhalation q24hr ,Instr:doses should be [...]
[2017-01-27] MEDS ORDERED: SALINE FLUSH 10ml SYRINGE IVF PRN (06:36)
--- NOTE | 2017-01-27 07:10 | Emergency Department Report ---
General Adult HPI - General Chief complaint: Dizziness Stated complaint: dizzy,shoulder pain Time Seen by Provider: 01/27/17 06:10 Source: patient Mode of arrival: ambulatory Limitations: no limitations - History of Present Illness HPI narrative: 67-year-old male presents to the emergency department with a chief complaint of an exacerbation of his typical angina. Patient noted onset of symptoms upon awakening at approximately 0445 today. Patient describes a very mild discomfort that is pressure a in the left side of his chest/shoulder. No radiation. Patient also notes feeling slightly " dizzy." Patient has intermittent bouts of this typical dizziness this is not a new finding for him. Patient does not note any exacerbating or remitting factors. No other complaints or associated symptoms. Patient was at home when the symptoms began. Symptoms have been persistent in nature since onset. Patient does have a history of angina and underwent CABG 17 years ago. - Related Data Home Medications Medication Instructions Recorded Confirmed Albuterol Sulfate 1 vial INH BID PRN #0 04/06/15 01/27/17 Aspirin [Aspirin EC] 4 tab PO BID #0 tab 04/06/15 01/27/17 Atorvastatin Calcium 1 tab PO DAILY #0 04/06/15 01/27/17 Fish Oil/Dha/Epa [Fish Oil 1,200 1,200 mg PO DAILY #0 cap 04/06/15 01/27/17 mg Fish Oil] Furosemide 1 tab PO DAILY #0 04/06/15 01/27/17 Guaifenesin/Pseudoephedrne HCl 1 tab PO BID #0 04/06/15 01/27/17 [Mucinex D ER Tablet] Labetalol HCl 1 tab PO BID #0 04/06/15 01/27/17 MYLANTA 1 dose PO PRN PRN #0 04/06/15 01/27/17 Minoxidil 0.5 tab PO BID #0 04/06/15 01/27/17 Multivitamin [Daily Multiple 1 tab PO DAILY #0 04/06/15 01/27/17 Vitamin] Spironolactone 25 mg PO DAILY #0 tab 04/06/15 01/27/17 Ubidecarenone [Coq-10] 400 mg PO DAILY #0 04/06/15 01/27/17 Lisinopril [Prinivil] 20 mg PO DAILY 08/26/17 08/26/17 Allergies Allergy/AdvReac Type Severity Reaction Status Date / Time Penicillins Allergy Unknown 'I ALMOST Unverified 01/27/17 07:16 ' Sulfa (Sulfonamide Allergy Unknown 'I ALMOST Unverified 01/27/17 07:16 Antibiotics) ' Review of Systems Constitutional: Denies: fever, chills Eyes: Denies: eye pain, vision change ENT: Denies: ear pain, throat pain Cardiovascular: Reports: chest pain. Denies: palpitations Respiratory: Denies: cough, dyspnea Gastrointestinal: Denies: abdominal pain, nausea, vomiting, diarrhea Genitourinary: Denies: urgency, dysuria Musculoskeletal: Denies: back pain, arthralgia Integumentary: Denies: erythema, rash Neurological: Denies: headache, numbness Psychiatric: Denies: anxiety, depression Endocrine: Denies: fatigue, heat or cold intolerance Hematological/Lymphatic: Denies: easy bleeding, easy bruising Allergic/Immunologic: Denies: facial swelling, urticaria PFSH Patient Stated Medical History Cataracts Yes Angina Yes Coronary Artery Disease Yes Hypertension Yes Myocardial Infarction Yes Chronic Obstructive Pulmonary Yes: POSSIBLE Disease (COPD) Osteoarthritis Yes HTN, CAD, Carpal Tunnel Surgical History: CABG, CTS Family History: Reviewed and Non-contributory. - Social History Smoking status: Never smoker Substance use type: does not use Alcohol intake frequency: former alcohol drinker Physical Exam - Limitations Limitations: no limitations - General General appearance: alert, in no apparent distress - Normal Exams: Head:: Normocephalic without trauma Eyes:: Pupils are PERRLA w/ EOMI, No scleral icterus, irritation, or foreign bodies noted ENMT:: No facial trauma, nasal exudates, pharyngeal erythema, or exudates are noted Dental: No fractured, loose, or missing teeth noted Neck:: Full range of motion, without adenopathy, JVD, bruits or thyromegaly Chest/Respirations:: Clear all lazo, with good airflow, and symmetry bilaterally Cardiovascular:: Regular rate and rhythm, without murmur or gallop, Pulses 2+ all extremities, capillary refill, <2 seconds all extremities Abdomen:: Bowel sounds positive, soft, non-tender, non-distended, no hepatosplenomegaly, masses or bruits noted Lymphatic:: No lymphadenopathy, or lymphedema noted Musculoskeletal:: No tenderness, or deformity noted, good range of motion, all extremities Integumentary:: No rashes, hives, or bruising noted, hair and nails, without abnormality Neurological:: Patient is alert, and oriented, cranial nerves, motor/sensory/ cerebellar, exams w/o gross deficits, to observation (alert and oriented 4. Cranial nerves II12 intact. Normal sensation. Normal motor. Normal gait. Normal speech. Normal strength. Normal coordination. Absent Babinski bilaterally. Reflexes 2/4 in all extremities. Gait is normal. Unremarkable neurologic exam. No focal neurologic deficit.) Psychiatric:: Patient exhibits, appropriate attention, emotion and affect Course Vital Signs Temperature 97.8 F 01/27/17 05:55 Pulse Rate 82 01/27/17 05:55 Respiratory Rate 20 01/27/17 05:55 Blood Pressure 152/71 H 01/27/17 05:55 Pulse Oximetry 97 01/27/17 05:55 Temperature 97.8 F 01/27/17 05:55 Pulse Rate 78 01/27/17 09:00 Respiratory Rate 23 01/27/17 09:00 Blood Pressure 122/64 01/27/17 09:00 Pulse Oximetry 97 01/27/17 09:00 Medical Decision Making - MDM Narrative Medical decision making narrative: Patient did take 324 mg of aspirin by mouth 1 today prior to arrival to the emergency department. Labs/imaging were discussed in detail with the patient and family and questions are answered. Patient and family are requesting to see of Dr. Ro would be willing to accept the patient to the hospital. Patient is discussed with Dr. Baldwin who is a partner of Dr. Ro. Cardiology accepts the patient to the hospital. Patient did have his pain resolved in the emergency department and remained pain and symptom free in the emergency department during his stay. Patient denies continuation of dizziness or chest pain in the emergency Department. Patient states the dizziness is not a new finding for him. Accepting physician is in agreement with the current plan of management. Patient is admitted to the hospital in improved condition. No further orders. Patient and family are in agreement with the current plan of management. - Differential Diagnosis WI, ACS, chest wall pain, metabolic process - Lab Data Result diagrams: 01/27/17 06:09 01/27/17 06:09 Lab Results 01/27/17 01/27/17 01/27/17 Range/Units 06:09 06:09 07:54 WBC 8.3 (4.5-11.0) T/MM3 RBC 4.52 (4.50-5.90) M/MM3 Hgb 12.2 L (13.5-17.5) GM/DL Hct 36.5 L (41-53) % MCV 80.8 (80-100) UM3 MCH 27.0 (26-34) UUG MCHC 33.4 (31-37) GM/DL RDW Std Deviation 39.8 (36.9-50.2) FL Plt Count 182 (130-400) T/MM3 MPV 9.1 L (9.4-12.4) UM3 Immature Gran % (Auto) 0.2 (0.0-0.5) % Neut % (Auto) 72.7 H (33-66) % Lymph % (Auto) 18.0 L (23-45) % [place] % (Auto) 7.6 (0-9.0) % Eos % (Auto) 1.3 (0-4) % Baso % (Auto) 0.2 (0-2) % Neut # 6.0 (1.8-7.7) T/MM3 Lymph # 1.5 (1-4.8) T/MM3 [place] # 0.6 (0-0.8) T/MM3 Eos # 0.1 (0-0.5) T/MM3 Baso # 0.0 (0-0.2) T/MM3 Abs Immat Gran (auto) 0.02 (0.00-0.03) T/MM3 Turbidity < 20 (0-20) Sodium 143 (134-144) MEQ/L Potassium 4.0 (3.6-5) MEQ/L Chloride 105 (98-107) MEQ/L Carbon Dioxide 27 (22-30) MEQ/L Anion Gap 11 (5-15) MEQ/L BUN 23.0 H (9-20) MG/DL Creatinine 1.0 (0.8-1.5) MG/DL GFR Calculation 74 BUN/Creatinine Ratio 23 (6-26) RATIO Glucose 113 H (75-110) MG/DL Calculated Osmolality 280 (261-280) MOSM/KG Calcium 8.8 (8.4-10.2) MG/DL Total Bilirubin 0.80 (0.20-1.30) MG/DL Icterus Index < 2 (0-7) AST 17 (17-59) U/L ALT 34 (21-72) U/L Alkaline Phosphatase 83 (38-126) U/L Troponin I < 0.012 (0-0.12) ng/ml Total Protein 6.9 (6.3-8.2) G/DL Albumin 4.2 (3.5-5.0) G/DL Globulin 2.7 (2.4-3.6) G/DL Albumin/Globulin Ratio 1.6 (1.1-2.2) RATIO Specimen Hemolysis < 15 (0-25) Ur Collection Type Urine, clean catch Urine Color Yellow (YELLOW) Urine Clarity Clear Urine pH 5.5 (5.0-8.0) Ur Specific [place] 1.020 (1.015-1.025) Urine Protein Negative (NEGATIVE) Urine Glucose (UA) Negative (NEGATIVE) Urine Ketones Negative (NEGATIVE) Urine Occult Blood Negative (NEGATIVE) Urine Nitrate Negative (NEGATIVE) Urine Bilirubin Negative (NEGATIVE) Urine Urobilinogen 0.2 (NORMAL) EU/DL Ur Leukocyte Esterase Negative (NEGATIVE) Urinalysis Comment Microscopic not ind. - Radiology Data CT HEAD - Negative. CXR: No acute processes. - EKG Data EKG #1 EKG results narrative: Sinus rhythm. [address] changes. No STEMI. Disposition Clinical Impression: Chest pain Qualifiers: Chest pain type: other chest pain Qualified Code(s): R07.89 - Other chest pain Disposition: 02 To [facility] Condition: Improved Time of Disposition: 07:47 (Admit. Dr. Baldwin. ) - Seen By: physician
[2017-01-27 09:34] VITALS: BMI 39.6
[2017-01-27] MEDS ORDERED: NITROGLYCERIN 0.4 MG SUBLINGUAL TABLET SL PRN (12:07)
[2017-01-27] MEDS ORDERED: ONDANSETRON 4 MG/2 ML INJECTION IVP PRN (12:07)
[2017-01-27] MEDS ORDERED: ASPIRIN *EC* 81 MG TABLET PO SCH (12:15)
[2017-01-27] MEDS ORDERED: ALBUTEROL 2.5mg/3ml (0.083%) NEB IH PRN (13:27)
[2017-01-27] MEDS ORDERED: MAG-AL + SIM ORAL LIQUID 30ml PO PRN (13:27)
--- NOTE | 2017-01-27 13:31 | Cardiology History & Physical ---
History of Present Illness Chief complaint: Chest Pain HPI: Mr Elizalde, is a 67 years old male with past medical history of drug resistant HTN , dyslipidemia, known CAD, s/p 3v-CABG (17 yrs ago); presented with an episode of chest pain at rest. Mr Elizalde reports that he has been in his usual state of health about 3 months ago, when he started developing fatigue and tiredness, and occasional episodes of dizziness. During this time, he had total of three episodes of chest pain, which he describes as substernal chest pain, also pain below his shoulder blade, usually not very severe, occurs at rest, and lasts for about half hour or so. He reports that he woke up this am, went to bathroom, and when he went back to bed, had chest pain, associated with left shoulder blade pain and left shoulder pain. He decided to come to ER, and en route to ER, his pain resolved. In ER he reported mild chest discomfort. He was placed in observation. At the time of my assessment he reports that he was largely chest pain free. He reports exertional dyspnea, which he relates to being deconditioned. Denies orthopnea, PND, palpitations, syncope or peripheral edema. He is being followed by Dr Chacon, and was last seen by Dr Chacon in 06/2016. He underwent echo and a stress test last year, and was told everything was fine, and he had minor leaky valve. Review of Systems - Constitutional Constitutional: Absent: fever(s), headache(s), night sweats, weakness, weight loss - EENMT Eyes: Absent: change in vision, loss of vision, pain Ears: Absent: ear discharge, ear pain Balance: Absent: vertigo, ataxia Nose: Absent: nosebleeds Mouth/Throat: Absent: changes in swallowing, painful swallowing - Cardiovascular Cardiovascular: Present: chest pain, dyspnea on exertion. Absent: palpitations , syncope, orthopnea, edema, cyanosis Rhythm: Present: regular rhythm Vascular: Absent: intermittent claudication, pedal edema - Respiratory Respiratory: Absent: cough, hemoptysis, wheezing - Gastrointestinal Gastrointestinal: Absent: abdominal pain, hematemesis, melena - Musculoskeletal Musculoskeletal: Absent: abnormal gait - Integumentary/Breasts Integumentary: Absent: lesions - Neurological Neurological: Absent: loss of vision, sensory deficit [facility] Patient Stated Medical History Cataracts Yes: Right Eye Angina Yes Coronary Artery Disease Yes Hypertension Yes Myocardial Infarction Yes Bronchitis Yes: hx of chronic Chronic Obstructive Pulmonary Yes: POSSIBLE Disease (COPD) Hx Urinary Tract Infection Yes Osteoarthritis Yes Surgical History: CABG, CTS Family History: Non-Contributory - Social History Smoking status: Never smoker Substance use type: does not use Medications Home Medications Medication Instructions Recorded Confirmed Type Albuterol Sulfate 1 vial INH BID PRN #0 04/06/15 01/27/17 History Aspirin [Aspirin EC] 4 tab PO BID #0 tab 04/06/15 01/27/17 History Atorvastatin Calcium 1 tab PO DAILY #0 04/06/15 01/27/17 History Fish Oil/Dha/Epa [Fish Oil 1,200 1,200 mg PO DAILY #0 cap 04/06/15 01/27/17 History mg Fish Oil] Furosemide 1 tab PO DAILY #0 04/06/15 01/27/17 History Guaifenesin/Pseudoephedrne HCl 1 tab PO BID #0 04/06/15 01/27/17 History [Mucinex D ER Tablet] Labetalol HCl 1 tab PO BID #0 04/06/15 01/27/17 History MYLANTA 1 dose PO PRN PRN #0 04/06/15 01/27/17 History Minoxidil 0.5 tab PO BID #0 04/06/15 01/27/17 History Multivitamin [Daily Multiple 1 tab PO DAILY #0 04/06/15 01/27/17 History Vitamin] Spironolactone 25 mg PO DAILY #0 tab 04/06/15 01/27/17 History Ubidecarenone [Coq-10] 400 mg PO DAILY #0 04/06/15 01/27/17 History Lisinopril [Prinivil] 20 mg PO DAILY 01/27/17 01/27/17 History Allergies Allergy/AdvReac Type Severity Reaction Status Date / Time Penicillins Allergy Unknown 'I ALMOST Unverified 01/27/17 07:16 ' Sulfa (Sulfonamide Allergy Unknown 'I ALMOST Unverified 01/27/17 07:16 Antibiotics) ' Exam Vital signs: Temperature 98.1 F 01/27/17 09:28 Pulse Rate 80 01/27/17 09:28 Respiratory Rate 16 01/27/17 09:28 Blood Pressure 145/80 H 01/27/17 09:28 Pulse Oximetry 97 08/26/17 09:28 Oxygen Delivery Method Room Air - Constitutional no acute distress, well developed, obese - Routine HEENT Exam Head: Present: normocephalic, atraumatic Eye: Present: EOMI, PERRL Nose: moist mucous membranes - Routine Neck Exam Present: supple, full ROM. Absent: JVD - Routine Chest/Breast/Axilla Exam Chest wall: Absent: tenderness - Routine Respiratory Exam Present: CTA bilaterally - Routine Cardiovascular Exam Present: RRR, S1, S2, murmur Comments: Soft mid-systolic murmur - Routine Abdominal Exam Present: soft, non distended, non tender - Routine Extremities Exam Present: no edema - Routine Skin Exam Present: normal turgor - Routine Neurological Exam Present: alert, oriented X3. Absent: sensory deficit, motor deficit - Routine Psychiatric Exam Present: normal affect, normal thought process Results 01/27/17 12:24 01/27/17 12:24 Cardiac Enzymes 01/27/17 Range/Units 12:24 AST 21 (17-59) U/L Troponin I < 0.012 (0-0.12) ng/ml CBC 01/27/17 Range/Units 12:24 WBC 8.9 (4.5-11.0) T/MM3 RBC 4.76 (4.50-5.90) M/MM3 Hgb 13.0 L (13.5-17.5) GM/DL Hct 38.1 L (41-53) % Plt Count 202 (130-400) T/MM3 Neut # 6.5 (1.8-7.7) T/MM3 Lymph # 1.7 (1-4.8) T/MM3 [place] # 0.5 (0-0.8) T/MM3 Eos # 0.1 (0-0.5) T/MM3 Baso # 0.0 (0-0.2) T/MM3 Comprehensive Metabolic Panel 01/27/17 Range/Units 12:24 Sodium 143 (134-144) MEQ/L Potassium 4.2 (3.6-5) MEQ/L Chloride 105 (98-107) MEQ/L Carbon Dioxide 27 (22-30) MEQ/L BUN 20.0 (9-20) MG/DL Creatinine 0.9 (0.8-1.5) MG/DL Glucose 98 (75-110) MG/DL Calcium 9.2 (8.4-10.2) MG/DL AST 21 (17-59) U/L ALT 39 (21-72) U/L Alkaline Phosphatase 89 (38-126) U/L Total Protein 7.4 (6.3-8.2) G/DL Albumin 4.6 (3.5-5.0) G/DL Intake and Output 01/26/17 01/27/17 01/27/17 22:59 06:59 14:59 Intake Total 0 / 0 Output Total 200 / 200 Balance -200 / -200 Intake: Oral 0 / 0 Output: Urine 200 / 200 Other: Urine Appearance Clear Urine Color Pale Urine Odor Normal Weight 128.9 kg Patient Weight 01/28/17 06:59 Weight 128.9 kg EKG interpretations - Dysrhythmias Sinus rhythms and dysrhythmias: sinus rhythm (Non-specific ST-T changes) Hospital Course This is a general summary of the patient's hospital course. For more details refer to the complete medical record. Time spent with patient: greater than 35 minutes DVT Prophylaxis: SCD's, Lovenox GI Prophylaxis: Pepcid Assessment and Plan (1) Chest pain Current visit: Yes Status: Acute He remains largely chest pain free, EKG doesn't show any dynamic ischemic changes, initial troponin is negative. We will obtain three sets of cardiac biomarkers and observe. Will hold off on systemic anticoagulation for now, should he develop recurrent pain, will anticoagulate him. If he remains symptom free overnight, and troponin and ekg remain negative, we will let him go home. Will schedule him to see Dr Ro, in [facility] early next week for an outpatient stress test, and TTE. (2) HTN (hypertension) Problem details: Long standing, Drug resistant Current visit: Yes Status: Acute Continue home meds Labetalol 200mg BID Aldactone 25mg daily Lisinopril 20mg daily Furosemide 80mg daily Minoxidil 5mg BID (3) Dyslipidemia Current visit: Yes Status: Acute Continue home Atorvastatin 40mg daily Check Fasting lipid panel (4) Coronary artery disease Current visit: Yes Status: Acute History of prior PCI, and 3-v CABG about 17 years ago Continue ASA, Statin. Sepsis Assessment - Evaluation Sepsis screening result: No Definite Risk
[2017-01-27] MEDS ORDERED: MINOXIDIL 2.5 MG TABLET PO SCH (13:32)
[2017-01-27] MEDS: COENZYME Q10 200 MG PO SCH (15:09)
[2017-01-27] MEDS: SPIRONOLACTONE 25 MG PO SCH (15:09)
[2017-01-27] MEDS: --POM--LISINOPRIL 20 MG TABLET PO SCH (15:09)
[2017-01-27] MEDS: FUROSEMIDE 80 MG PO SCH (15:33)
--- NOTE | 2017-01-27 16:17 | CT Scan Report ---
Indication: Dizziness starting early this morning PROCEDURE: CT head/brain wo con: Encounter: Initial Comparison: None Technique: Axial CT images through the head were performed without contrast. Iterative Reconstruction dose reducing technique was utilized. FINDINGS: The ventricles are of normal size, shape, and contour for the patient's age. There are scattered areas of low attenuation in the white matter which most likely represent changes from chronic microvascular ischemia. The brainstem, cerebellum, and cerebral hemispheres otherwise have a normal morphology and CT attenuation. There is no evidence of midline displacement. No hemorrhage, signs of acute territorial stroke, mass effect, mass lesions, or edema is evident. The visualized portions of the skull base, midface, and calvarium demonstrate no abnormality. The paranasal sinuses are well aerated and free of significant disease. The tympanic and mastoid cavities appear normal. IMPRESSION: No acute intracranial abnormality or hemorrhage. There is a preliminary report by [employer] radiologic. .
--- NOTE | 2017-01-27 16:18 | XRay Report ---
Indication: pain, body aches and dizziness PROCEDURE: XR chest 1V: Encounter: Initial Comparison: None FINDINGS: The lungs are clear. There is no abnormal airspace opacity, pleural effusion or pneumothorax identified. The heart size is at the upper limits of normal. The pulmonary vasculature and mediastinum are within normal limits. Poststernotomy changes. IMPRESSION: No acute cardiopulmonary abnormality. .
[2017-01-27] MEDS ORDERED: --POM--ATORVASTATIN 40 MG TABLET PO SCH (21:00)
[2017-01-27] MEDS: --POM--ASPIRIN *EC* 81 MG TABLET PO SCH (22:04)
[2017-01-27] MEDS: GUAIFENESIN/P-EPHED 600 MG/60 MG TAB (12HR) PO SCH (22:05)
[2017-01-27] MEDS: MINOXIDIL 10 MG PO SCH (22:05)
[2017-01-27] MEDS: LABETALOL 200 MG PO SCH (22:06)
[2017-01-28 00:11] VITALS: RESP 16
[2017-01-28] MEDS: OMEPRAZOLE 20 MG CAPSULE PO SCH ×2 (06:34→06:36)
[2017-01-28] MEDS: SPIRONOLACTONE 25 MG PO SCH (08:53)
[2017-01-28] MEDS: COENZYME Q10 200 MG PO SCH (08:54)
[2017-01-28] MEDS: FUROSEMIDE 80 MG PO SCH (08:54)
[2017-01-28] MEDS: --POM--ASPIRIN *EC* 81 MG TABLET PO SCH (08:54)
[2017-01-28] MEDS: GUAIFENESIN/P-EPHED 600 MG/60 MG TAB (12HR) PO SCH (08:55)
[2017-01-28] MEDS: MINOXIDIL 10 MG PO SCH (08:55)
[2017-01-28] MEDS: --POM--LISINOPRIL 20 MG TABLET PO SCH (08:56)
[2017-01-28] MEDS: LABETALOL 200 MG PO SCH (08:57)
[2017-01-28] MEDS ORDERED: FUROSEMIDE 80 MG TABLET PO SCH (09:00)
[2017-01-28] MEDS ORDERED: FUROSEMIDE 80 MG PO SCH (09:00)
[2017-01-28] MEDS ORDERED: ENOXAPARIN 40 MG/0.4 ML INJECTION SQ SCH (09:00)
[2017-01-28] MEDS ORDERED: OMEGA-3 ACID ESTERS 1 GM CAPSULE PO SCH (09:00)
[2017-01-28 09:02] VITALS: BP 144/77; PULSE 85; TEMP 98.1; O2SAT 96
--- NOTE | 2017-01-28 13:46 | Discharge Instructions ---
<Jannie Flores - Last Filed: 01/28/17 13:44> Discharge Plan - Med Rec/Dispo Referrals/Follow Up: Lamont Ro MD [Physician] - 1 Week Prescriptions: New Nitroglycerin [Nitrostat] 0.4 mg SL Q5M PRN tablet PRN Reason: Chest Pain Continue Labetalol HCl 1 tab PO BID #0 Furosemide 1 tab PO DAILY #0 Minoxidil 0.5 tab PO BID #0 Albuterol Sulfate 1 vial INH BID PRN #0 PRN Reason: ASTHMA Spironolactone 25 mg PO DAILY #0 tab MYLANTA 1 dose PO PRN PRN #0 PRN Reason: INDIGESTION Guaifenesin/Pseudoephedrne HCl [Mucinex D ER Tablet] 1 tab PO BID #0 Fish Oil/Dha/Epa [Fish Oil 1,200 mg Fish Oil] 1,200 mg PO DAILY #0 cap Ubidecarenone [Coq-10] 400 mg PO DAILY #0 Atorvastatin Calcium 1 tab PO DAILY #0 Aspirin [Aspirin EC] 4 tab PO BID #0 tab Multivitamin [Daily Multiple Vitamin] 1 tab PO DAILY #0 Lisinopril [Prinivil] 20 mg PO DAILY - Disposition 01 Discharged Home, Self-Care <Lamont Ro - Last Filed: 01/29/17 15:23> Discharge Plan - Med Rec/Dispo - Attestation Attestation Narrative: 01/29/17 15:23 Recommendation After examining the patient I agree with the above assessment. I am involved in the formulation of the patient's plan of care. Addendum entered and electronically signed by Jannie Flores APRN 01/28/17 13:47: We added omeprazole to the DC meds and pt plans to purchase OTC.
--- NOTE | 2017-01-28 13:50 | Discharge Summary ---
Discharge Information Date of admission: 01/27/17 08:49 Anticipated date of discharge: 01/28/17 Attending Physician: Nikunj Baldwin MD Primary care physician: Bryson Humphreys MD Consults: none - Discharge Diagnosis Discharge Diagnosis: Chest pain CAD DSLD HTN - Procedures Procedures: Sinus rhythms and dysrhythmias: sinus rhythm (Non-specific ST-T changes) - Laboratory Labs: 01/28/17 00:30 01/28/17 00:30 Laboratory Results - last 72 hr 01/27/17 01/27/17 01/27/17 06:09 06:09 07:54 WBC 8.3 RBC 4.52 Hgb 12.2 L Hct 36.5 L MCV 80.8 MCH 27.0 MCHC 33.4 RDW Std Deviation 39.8 Plt Count 182 MPV 9.1 L Immature Gran % (Auto) 0.2 Neut % (Auto) 72.7 H Lymph % (Auto) 18.0 L [place] % (Auto) 7.6 Eos % (Auto) 1.3 Baso % (Auto) 0.2 Neut # 6.0 Lymph # 1.5 [place] # 0.6 Eos # 0.1 Baso # 0.0 Abs Immat Gran (auto) 0.02 Turbidity < 20 Sodium 143 Potassium 4.0 Chloride 105 Carbon Dioxide 27 Anion Gap 11 BUN 23.0 H Creatinine 1.0 GFR Calculation 74 BUN/Creatinine Ratio 23 Glucose 113 H Glucometer Calculated Osmolality 280 Calcium 8.8 Total Bilirubin 0.80 Icterus Index < 2 AST 17 ALT 34 Alkaline Phosphatase 83 Troponin I < 0.012 Total Protein 6.9 Albumin 4.2 Globulin 2.7 Albumin/Globulin Ratio 1.6 Specimen Hemolysis < 15 Ur Collection Type Urine, clean catch Urine Color Yellow Urine Clarity Clear Urine pH 5.5 Ur Specific [place] 1.020 Urine Protein Negative Urine Glucose (UA) Negative Urine Ketones Negative Urine Occult Blood Negative Urine Nitrate Negative Urine Bilirubin Negative Urine Urobilinogen 0.2 Ur Leukocyte Esterase Negative Urinalysis Comment Microscopic not ind. 01/27/17 01/27/17 01/27/17 12:24 12:24 17:26 WBC 8.9 RBC 4.76 Hgb 13.0 L Hct 38.1 L MCV 80.0 MCH 27.3 MCHC 34.1 RDW Std Deviation 39.3 Plt Count 202 MPV 8.8 L Immature Gran % (Auto) 0.1 Neut % (Auto) 73.1 H Lymph % (Auto) 19.5 L [place] % (Auto) 6.1 Eos % (Auto) 1.0 Baso % (Auto) 0.2 Neut # 6.5 Lymph # 1.7 [place] # 0.5 Eos # 0.1 Baso # 0.0 Abs Immat Gran (auto) 0.01 Turbidity < 20 Sodium 143 Potassium 4.2 Chloride 105 Carbon Dioxide 27 Anion Gap 11 BUN 20.0 Creatinine 0.9 GFR Calculation 84 BUN/Creatinine Ratio 22 Glucose 98 Glucometer 108 Calculated Osmolality 278 Calcium 9.2 Total Bilirubin 1.00 Icterus Index < 2 AST 21 ALT 39 Alkaline Phosphatase 89 Troponin I < 0.012 Total Protein 7.4 Albumin 4.6 Globulin 2.8 Albumin/Globulin Ratio 1.6 Specimen Hemolysis < 15 Ur Collection Type Urine Color Urine Clarity Urine pH Ur Specific [place] Urine Protein Urine Glucose (UA) Urine Ketones Urine Occult Blood Urine Nitrate Urine Bilirubin Urine Urobilinogen Ur Leukocyte Esterase Urinalysis Comment 01/27/17 01/27/17 01/28/17 18:06 20:54 00:18 WBC RBC Hgb Hct MCV MCH MCHC RDW Std Deviation Plt Count MPV Immature Gran % (Auto) Neut % (Auto) Lymph % (Auto) [place] % (Auto) Eos % (Auto) Baso % (Auto) Neut # Lymph # [place] # Eos # Baso # Abs Immat Gran (auto) Turbidity Sodium Potassium Chloride Carbon Dioxide Anion Gap BUN Creatinine GFR Calculation BUN/Creatinine Ratio Glucose Glucometer 104 Calculated Osmolality Calcium Total Bilirubin Icterus Index AST ALT Alkaline Phosphatase Troponin I < 0.012 < 0.012 Total Protein Albumin Globulin Albumin/Globulin Ratio Specimen Hemolysis < 15 < 15 Ur Collection Type Urine Color Urine Clarity Urine pH Ur Specific [place] Urine Protein Urine Glucose (UA) Urine Ketones Urine Occult Blood Urine Nitrate Urine Bilirubin Urine Urobilinogen Ur Leukocyte Esterase Urinalysis Comment 01/28/17 01/28/17 01/28/17 00:30 00:30 05:50 WBC 9.4 RBC 4.42 L Hgb 12.1 L Hct 35.6 L MCV 80.5 MCH 27.4 MCHC 34.0 RDW Std Deviation 39.0 Plt Count 187 MPV 8.9 L Immature Gran % (Auto) 0.2 Neut % (Auto) 70.5 H Lymph % (Auto) 21.1 L [place] % (Auto) 6.7 Eos % (Auto) 1.3 Baso % (Auto) 0.2 Neut # 6.6 Lymph # 2.0 [place] # 0.6 Eos # 0.1 Baso # 0.0 Abs Immat Gran (auto) 0.02 Turbidity < 20 Sodium 140 Potassium 3.9 Chloride 102 Carbon Dioxide 29 Anion Gap 9 BUN 20.0 Creatinine 0.9 GFR Calculation 84 BUN/Creatinine Ratio 22 Glucose 125 H Glucometer 119 Calculated Osmolality 273 Calcium 9.0 Total Bilirubin Icterus Index < 2 AST ALT Alkaline Phosphatase Troponin I Total Protein Albumin Globulin Albumin/Globulin Ratio Specimen Hemolysis < 15 Ur Collection Type Urine Color Urine Clarity Urine pH Ur Specific [place] Urine Protein Urine Glucose (UA) Urine Ketones Urine Occult Blood Urine Nitrate Urine Bilirubin Urine Urobilinogen Ur Leukocyte Esterase Urinalysis Comment - Radiology Radiology: CRX: No acute cardiopulmonary abnormality. CT head: no acute abnormality History of Present Illness HPI: Mr Elizalde, is a 67 years old male with past medical history of drug resistant HTN , dyslipidemia, known CAD, s/p 3v-CABG (17 yrs ago); presented with an episode of chest pain at rest. Mr Elizalde reports that he has been in his usual state of health about 3 months ago, when he started developing fatigue and tiredness, and occasional episodes of dizziness. During this time, he had total of three episodes of chest pain, which he describes as substernal chest pain, also pain below his shoulder blade, usually not very severe, occurs at rest, and lasts for about half hour or so. He reports that he woke up this am, went to bathroom, and when he went back to bed, had chest pain, associated with left shoulder blade pain and left shoulder pain. He decided to come to ER, and en route to ER, his pain resolved. In ER he reported mild chest discomfort. He was placed in observation. At the time of my assessment he reports that he was largely chest pain free. He reports exertional dyspnea, which he relates to being deconditioned. Denies orthopnea, PND, palpitations, syncope or peripheral edema. He is being followed by Dr Chacon, and was last seen by Dr Chacon in 06/2016. He underwent echo and a stress test last year, and was told everything was fine, and he had minor leaky valve. Hospital Course (1) Chest pain Current visit: Yes Status: Acute He remains largely chest pain free, EKG doesn't show any dynamic ischemic changes, repeat ECG shows no changes. Trop neg x3. Will schedule him to see Dr Ro, in [facility] early next week for an outpatient stress test, and TTE. (2) HTN (hypertension) Problem details: Long standing, Drug resistant well controlled. Continue home meds Labetalol 200mg BID Aldactone 25mg daily Lisinopril 20mg daily Furosemide 80mg daily Minoxidil 5mg BID (3) Dyslipidemia Current visit: Yes Status: Acute Continue home Atorvastatin 40mg daily Check Fasting lipid panel (4) Coronary artery disease Current visit: Yes Status: Acute History of prior PCI, and 3-v CABG about 17 years ago Continue ASA, Statin. Time spent with patient: 25 - 35 minutes DVT Prophylaxis: Lovenox Discharge Plan - Med Rec/Dispo Referrals/Follow Up: Lamont Ro MD [Physician] - 1 Week Prescriptions: New Nitroglycerin [Nitrostat] 0.4 mg SL Q5M PRN tablet PRN Reason: Chest Pain Continue Labetalol HCl 1 tab PO BID #0 Furosemide 1 tab PO DAILY #0 Minoxidil 0.5 tab PO BID #0 Albuterol Sulfate 1 vial INH BID PRN #0 PRN Reason: ASTHMA Spironolactone 25 mg PO DAILY #0 tab MYLANTA 1 dose PO PRN PRN #0 PRN Reason: INDIGESTION Guaifenesin/Pseudoephedrne HCl [Mucinex D ER Tablet] 1 tab PO BID #0 Fish Oil/Dha/Epa [Fish Oil 1,200 mg Fish Oil] 1,200 mg PO DAILY #0 cap Ubidecarenone [Coq-10] 400 mg PO DAILY #0 Atorvastatin Calcium 1 tab PO DAILY #0 Aspirin [Aspirin EC] 4 tab PO BID #0 tab Multivitamin [Daily Multiple Vitamin] 1 tab PO DAILY #0 Lisinopril [Prinivil] 20 mg PO DAILY - Disposition 01 Discharged Home, Self-Care
== END 2017-01-28 15:00 | disposition home or self-care (01) ==
LOC: MED 05:52 → ED 05:52 → MED 09:21
PROVIDERS: ADMIT Internal Medicine Interventional Cardiology; ATTEND Internal Medicine Interventional Cardiology

== ENCOUNTER 2017-05-03 08:00 | Observation (INO) ==
[2017-05-03 08:16] VITALS: BMI 39.7
[2017-05-03] MEDS: AMIODARONE 200 MG TABLET PO SCH ×2 (09:51→20:29)
--- NOTE | 2017-05-03 11:12 | Cardiology History & Physical ---
History of Present Illness Chief complaint: V Tach HPI: Jony is a 67 year old male who is known to Dr. Ro's practice with a history of CAD with CABG, V Tach, SVT, HTN and HLD who is being admitted to observation for antiarrhythmic therapy on Amiodarone. Heart cath 02/20/17: GREENE to LAD patent, VG to 1st marginal patent, VG to RCA patent. Echo 03/20/17: EF 55%, NWMA, mod LAE, trMR Naresh MPI: 02/15/17: EF 63%, severe RCA ischemia Review of Systems - Constitutional Constitutional: Present: fatigue, weakness. Absent: chills, fever(s) - EENMT Eyes: Absent: change in vision Balance: Absent: vertigo Mouth/Throat: Absent: sore throat - Cardiovascular Cardiovascular: Absent: chest pain, palpitations, syncope, dyspnea on exertion Vascular: Absent: pedal edema - Respiratory Respiratory: Absent: cough, dyspnea, dyspnea on exertion - Gastrointestinal Gastrointestinal: Absent: abdominal pain, constipation, diarrhea, nausea, vomiting - Genitourinary Genitourinary: Absent: dysuria - Integumentary/Breasts Integumentary: Absent: rash - Neurological Neurological: Present: dizziness - Endocrine Endocrine: Absent: palpitations PFSH Patient Stated Medical History Cataracts Yes: Right Eye Hearing Loss Yes: LEFT EAR Angina Yes Cardiac Arrhythmia Yes Coronary Artery Disease Yes Hypertension Yes Myocardial Infarction Yes Asthma Yes Bronchitis Yes: hx of chronic Chronic Obstructive Pulmonary Yes: POSSIBLE Disease (COPD) Gastroesophageal Reflux Yes Disease Hiatal Hernia Yes Hx Urinary Tract Infection Yes Osteoarthritis Yes Clinic Medical History Chest pain (Acute Medical) HTN (hypertension) (Acute Medical) Long standing, Drug resistant Dyslipidemia (Acute Medical) Coronary artery disease (Acute Medical) Feared condition not demonstrated (Inactive Medical) Flank pain (Inactive Medical) Surgical History: CABG, CTS Family History: noncontributory - Social History Smoking status: Never smoker Substance use type: does not use Alcohol intake frequency: holidays/special occasions only (beer) Household members: spouse Current occupational status: employed Current occupation: [employer] Current residence: Apartment/Private Home Medications Home Medications Medication Instructions Recorded Confirmed Type Albuterol Sulfate 1 vial INH BID PRN #0 04/06/15 05/03/17 History Atorvastatin Calcium 40 mg PO WS #0 04/06/15 05/03/17 History Fish Oil/Dha/Epa [Fish Oil 1,200 1,200 mg PO DAILY #0 cap 04/06/15 05/03/17 History mg Fish Oil] Furosemide 80 mg PO DAILY #0 04/06/15 05/03/17 History Guaifenesin/Pseudoephedrne HCl 2 tab PO BID #0 04/06/15 05/03/17 History [Mucinex D ER Tablet] Labetalol HCl 200 mg PO BID #0 04/06/15 05/03/17 History Spironolactone 25 mg PO DAILY #0 tab 04/06/15 05/03/17 History Ubidecarenone [Coq-10] 400 mg PO DAILY #0 04/06/15 05/03/17 History Lisinopril [Prinivil] 20 mg PO DAILY 01/27/17 05/03/17 History Multivit-Min/FA/Lycopen/Lutein 1 each PO DAILY 02/19/17 05/03/17 History [Centrum Silver Tablet] Lansoprazole 15 mg PO DAILY 02/20/17 05/03/17 History Minoxidil 5 mg PO BID 02/20/17 05/03/17 History Aspirin [ASA] 325 mg PO BID 05/03/17 05/03/17 History Glucosa Arellano 2Kcl/Chondroitin Arellano 1 each PO BIDWM 05/03/17 05/03/17 History [Glucosamine Chondroitin Caplet] Allergies Allergy/AdvReac Type Severity Reaction Status Date / Time Penicillins Allergy Unknown 'I ALMOST Verified 05/03/17 08:49 ' Sulfa (Sulfonamide Allergy Unknown 'I ALMOST Verified 05/03/17 08:49 Antibiotics) ' Exam Vital signs: Temperature 97.5 F 05/03/17 09:56 Pulse Rate 83 05/03/17 09:56 Respiratory Rate 22 05/03/17 09:56 Blood Pressure 126/58 05/03/17 09:56 Pulse Oximetry 95 05/03/17 09:56 - Constitutional no acute distress, well nourished, cooperative - Routine HEENT Exam Head: Present: normocephalic ENT: Present: mucous membranes moist - Routine Neck Exam Absent: JVD, carotid bruit - Routine Chest/Breast/Axilla Exam Chest wall: Absent: tenderness - Routine Respiratory Exam Present: CTA bilaterally. Absent: rales, wheezes - Routine Cardiovascular Exam Present: RRR, no murmur. Absent: JVD - Routine Abdominal Exam Present: soft, normoactive bowel sounds - Routine Extremities Exam Present: no edema - Routine Skin Exam Present: intact, dry, warm - Routine Neurological Exam Present: alert, oriented X3 - Routine Psychiatric Exam Present: normal affect, normal thought process Results 05/03/17 08:32 05/04/17 04:39 Cardiac Enzymes 05/03/17 Range/Units 08:32 AST 20 (17-59) U/L CBC 05/03/17 Range/Units 08:32 WBC 7.9 (4.5-11.0) T/MM3 RBC 4.45 L (4.50-5.90) M/MM3 Hgb 12.1 L (13.5-17.5) GM/DL Hct 36.0 L (41-53) % Plt Count 206 (130-400) T/MM3 Neut # (Auto) 5.9 (1.8-7.7) T/MM3 Lymph # (Auto) 1.4 (1-4.8) T/MM3 [place] # (Auto) 0.5 (0-0.8) T/MM3 Eos # (Auto) 0.1 (0-0.5) T/MM3 Baso # (Auto) 0.0 (0-0.2) T/MM3 Comprehensive Metabolic Panel 05/03/17 Range/Units 08:32 Sodium 140 (134-144) MEQ/L Potassium 3.6 (3.6-5) MEQ/L Chloride 101 (98-107) MEQ/L Carbon Dioxide 28 (22-30) MEQ/L BUN 13.0 (9-20) MG/DL Creatinine 0.9 (0.8-1.5) MG/DL Glucose 108 (75-110) MG/DL Calcium 8.6 (8.4-10.2) MG/DL AST 20 (17-59) U/L ALT 33 (21-72) U/L Alkaline Phosphatase 74 (38-126) U/L Total Protein 6.8 (6.3-8.2) G/DL Albumin 4.0 (3.5-5.0) G/DL Intake and Output 05/02/17 05/03/17 05/03/17 22:59 06:59 14:59 Other: # Voids 3 Weight 285 lb Patient Weight 12/01/17 06:59 Weight 285 lb - EKG Interpretation EKG: sinus rhythm EKG interpretations - Dysrhythmias Sinus rhythms and dysrhythmias: sinus rhythm - Blocks, axis, hypertrophy, ST abn Repolarization changes or abnormalities: nonspecific abnormality, ST segment, and/or T wave Hospital Course This is a general summary of the patient's hospital course. For more details refer to the complete medical record. Assessment and Plan - Attestation Attestation Narrative: 05/08/17 08:02 Recommendation After examining the patient I agree with the above assessment. I am involved in the formulation of the patient's plan of care. - Assessment and Plan (1) Ventricular tachycardia Status: Chronic Admit for antiarrhythmic therapy on Amiodarone. Check LFTs, Mag and TSH, EKG EKG in am (2) Supraventricular tachycardia Status: Chronic Admit for antiarrhythmic therapy on Amiodarone. 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
[2017-05-03] MEDS ORDERED: ALBUTEROL 2.5mg/3ml (0.083%) NEB AEROSOL PRN (16:12)
[2017-05-03] MEDS ORDERED: NITROGLYCERIN 0.4 MG SUBLINGUAL TABLET SL PRN (16:12)
[2017-05-03] MEDS ORDERED: ATORVASTATIN 40 MG TABLET PO SCH (17:30)
[2017-05-03] MEDS: GUAIFENESIN/P-EPHED 600 MG/60 MG TAB (12HR) PO SCH (20:32)
[2017-05-03] MEDS: ASPIRIN 325 MG TABLET PO SCH (20:32)
[2017-05-03] MEDS: LABETALOL HCL 200 MG PO SCH (20:33)
[2017-05-03] MEDS: MINOXIDIL 10 MG PO SCH (20:33)
[2017-05-04 01:13] VITALS: O2SAT 99
[2017-05-04] MEDS ORDERED: LANSOPRAZOLE 15 MG PO SCH (06:30)
[2017-05-04 07:31] VITALS: BP 148/66; PULSE 79; RESP 22; TEMP 97.8
[2017-05-04] MEDS: AMIODARONE 200 MG TABLET PO SCH (08:29)
[2017-05-04] MEDS: ASPIRIN 325 MG TABLET PO SCH (08:30)
[2017-05-04] MEDS: GUAIFENESIN/P-EPHED 600 MG/60 MG TAB (12HR) PO SCH (08:32)
[2017-05-04] MEDS: LABETALOL HCL 200 MG PO SCH (08:32)
[2017-05-04] MEDS: MINOXIDIL 10 MG PO SCH (08:34)
[2017-05-04] MEDS ORDERED: FUROSEMIDE 80 MG TABLET PO SCH (09:00)
[2017-05-04] MEDS ORDERED: SPIRONOLACTONE 25 MG TABLET PO SCH (09:00)
[2017-05-04] MEDS ORDERED: LISINOPRIL 20 MG TABLET PO SCH (09:00)
[2017-05-04] MEDS ORDERED: COENZYME Q10 400 MG PO SCH (09:00)
[2017-05-04] MEDS ORDERED: MULTI-VITAMIN + MINERAL TABLET PO SCH (09:00)
== END 2017-05-04 10:40 | disposition home or self-care (01) ==
LOC: SRG
PROVIDERS: ADMIT Internal Medicine Cardiovascular Disease; ATTEND Internal Medicine Cardiovascular Disease